=== PATIENT | female | born 1960 | race Caucasian/White ===

== ENCOUNTER 2023-07-21 05:29 | Inpatient (IN) | payer SELFPAY, OTHER ==
[2023-07-09 15:39] LABS: Magnesium 2.3 mg/dL (1.6-2.6); Thyroid Stim Hormone (TSH) 3.03 uIU/mL (0.358-3.74)
[2023-07-09 15:43] LABS: Hemoglobin A1c 5.7 % (3.8-5.6)
[2023-07-09 18:58] LABS: Albumin, Serum 3.5 g/dL (3.2-5.0); Anion Gap 5 (5-15); BUN 15 mg/dL (7-18); Calcium,Total 9.1 mg/dL (8.5-10.1); Chloride 105 mmol/L (98-107); Creatinine, Serum 0.65 mg/dL (0.55-1.02); EST Glomerular Filtration Rate 97 mL/min (>60); Est Glom Filt Rate - Afr Amer 118 mL/min (>60); Glucose 106 mg/dL (74-106); Potassium 3.7 mmol/L (3.5-5.1); Sodium Level 139 mmol/L (136-145)
[2023-07-21] VITALS (14 sets, daily range): BP systolic 98–146; BP diastolic 56–84; PULSE 72–92; RESP 15–18; TEMP 36.1–36.5; O2SAT 4–100; BMI 40.2
--- OUTSIDE RECORDS SUMMARY | 2023-07-21 05:33 | XMS RPT_ITS | CCD ---
Author Name Unknown Address [address] [place] [address] Organization [facility] Care Team Providers Care [employer] Crew Boss Name Role Phone HOMERO WOLFCHARY T Consulting Unavailable HUNTER BOSTON MD Primary Care Unavailable HUNTER BOSTON MD Admitting Unavailable HUNTER BOSTON MD Attending Unavailable PROVIDER, UNKNOWN Consulting Unavailable PROVIDER, UNKNOWN Consulting Unavailable PROVIDER, UNKNOWN Consulting Unavailable MARYANN MICHELE T Consulting Unavailable DANETTE KENDRICK DR Attending Unavailable DANETTE KENDRICK DR Admitting Unavailable DANETTE KENDRICK DR Primary Care Unavailable PROVIDER, UNKNOWN Consulting Unavailable PROVIDER, UNKNOWN Consulting Unavailable PROVIDER, UNKNOWN Consulting Unavailable MARYANN MICHELE T Consulting Unavailable DANETTE KENDRICK DR Primary Care Unavailable DANETTE KENDRICK DR Attending Unavailable DANETTE KENDRICK DR Admitting Unavailable PROVIDER, UNKNOWN Consulting Unavailable PROVIDER, UNKNOWN Consulting Unavailable PROVIDER, UNKNOWN Consulting Unavailable MARYANN MICHELE T Consulting Unavailable DANETTE KENDRICK DR Primary Care Unavailable DANETTE KENDRICK DR Attending Unavailable DANETTE KENDRICK DR Admitting Unavailable PROVIDER, UNKNOWN Consulting Unavailable PROVIDER, UNKNOWN Consulting Unavailable PROVIDER, UNKNOWN Consulting Unavailable MARYANN MICHELE T Consulting Unavailable DANETTE KENDRICK DR Primary Care Unavailable DANETTE KENDRICK DR Attending Unavailable DANETTE KENDRICK DR Admitting Unavailable PROVIDER, UNKNOWN Consulting Unavailable PROVIDER, UNKNOWN Consulting Unavailable PROVIDER, UNKNOWN Consulting Unavailable DANETTE KENDRICK DR Primary Care Unavailable DANETTE KENDRICK DR Attending Unavailable MARYANN, MICHELE T Consulting Unavailable DANETTE KENDRICK DR Admitting Unavailable PROVIDER, UNKNOWN Consulting Unavailable PROVIDER, UNKNOWN Consulting Unavailable PROVIDER, UNKNOWN Consulting Unavailable GORAN, DR SIS Bhandari Primary Care Unavaila ble GORAN, DR SIS Bhandari Attending Unavaila ble MARYANN, MICHELE T Consulting Unavailable GORAN, DR SIS Bhandari Admitting Unavaila ble PROVIDER, UNKNOWN Consulting Unavailable PROVIDER, UNKNOWN Consulting Unavailable PROVIDER, UNKNOWN Consulting Unavailable MARYANN, MICHELE T Consulting Unavailable DANETTE KENDRICK DR Primary Care Unavailable DANETTE KENDRICK DR Attending Unavailable DANETTE KENDRICK DR Admitting Unavailable PROVIDER, UNKNOWN Consulting Unavailable PROVIDER, UNKNOWN Consulting Unavailable PROVIDER, UNKNOWN Consulting Unavailable MARYANN LORD, DR CR Primary Care Physician ( [phone] MARYANN LORD, DR CR Primary Care Clint BOSTON MD, DR HUNTER Jason Attending Unavailab Kerr [employer] SPECIALIST, GENNARO Primary Care Blanka daniel SILVA MD, DR HERNADEZ Attending Unavailab Tejal LORD, DR CR Primary Care Unavailjuan carlos BOSTON MD, DR HUNTER Jason Attending Unavail elise Medications Current Medications Medication Drug Class(es) Dates Sig (Normalized) Sig (Original) calcium carbonate 1500 mg oral tablet (1 source) Start: 06-05-2021 calcium (as carbonate) 600 mg oral tablet Dose : 1,200 mg = 2 tab(s), Oral, qDay, 0 Refill(s) Start Date: 06/05/21 Status: Ordered Eye Multivitamin (1 source) Start: 06-05-2021 take 1 capsule by mouth once daily Eye Multivitamin 1 capsule, Oral, qDay, 0 Refill(s) Start Date: 06/05/21 Status: Ordered ferrous sulfate 325 mg oral tablet (1 source) Start: 05-31-2023 IRON (ferrous sulfate 325 mg) 65 mg oral tablet Dose : 325 mg = 1 tab(s), Oral, BIDM, Take with food., # 60 tab(s), 3 Refill(s) Start Date: 05/31/23 Status: Ordered herbal/nutritional product (1 source) Start: 06-05-2021 take 1 capsule by mouth once daily herbal/nutritional product 1 capsule, Oral, Daily, 0 Refill(s) Start Date: 06/05/21 Status: Ordered Magnesium and Potassium oral capsule (1 source) Start: 05-31-2023 take 1 capsule by mouth once daily Magnesium and Potassium oral capsule Dose = 1 cap(s), Oral, qDay, # 60 cap(s), 0 Refill(s) Start Date: 05/31/23 Status: Ordered Vitamin C 500 mg oral tablet (1 source) Start: 06-05-2021 Vitamin C 500 mg oral tablet Dose : 500 mg = 1 tab(s), Oral, qDay, # 30 tab(s), 0 Refill(s) Start Date: 06/05/21 Status: Ordered Vitamin D3 (1 source) Start: 06-05-2021 Vitamin D3 Dose : 1,000 unit(s) = 1 tab(s), Oral, Daily, 0 Refill(s) Start Date: 06/05/21 Status: Ordered Problems Active Problems Problem Classification Problem Date Documented Da te Episodic/Chronic Osteoarthritis (3 sources) Unilateral primary osteoarthritis, left knee; Translations: [Unilateral primary osteoarthritis, left knee] Onset: 04-16-2021 Chronic Other connective tissue disease (3 sources) Presence of left artificial knee joint; Translations: [Presence of left artificial knee joint] Onset: 07-09-2021 Chronic Unclassified (2 sources) ENCOUNTER FOR SCREENING FOR COVID-19; Translations: [ENCOUNTER FOR SCREENING FOR COVID-19] Onset: 04-07-2021 Past or Other Problems Problem Classification Problem Date Documented Da te Episodic/Chronic Unclassified (1 source) ENCOUNTER FOR SCREENING FOR COVID-19; Translations: [ENCOUNTER FOR SCREENING FOR COVID-19] Onset: 04-07-2021 Results Test Name Value Interpretation Reference Range Facil ity Vital Signs Date Time Vital Sign Value Performing Clinician [facility] 05-31-2023 13:05-[address] HUNTER BOSTON MD [facility] 05-31-2023 13:05-[address] HUNTER Lloyd [facility] 05-31-2023 13:05-0500 Body height 157.[address] HUNTER BOSTON MD [facility] 05-31-2023 13:05-0500 Body weight [address] HUNTER BOSTON MD [facility] 05-31-2023 13:05-0500 Body weight 39.91 kg/m2 DR HUNTER BOSTON MD [facility] 05-31-2023 13:05-0500 Diastolic Blood Pressure Non-Invasive [address] HUNTER BOSTON MD [facility] 05-31-2023 13:05-0500 Heart rate 88 /min DR HUNTER BOSTON MD [facility] 05-31-2023 13:05-0500 Respiratory rate 18 /min DR HUNTER BOSTON MD [facility] 05-31-2023 13:05-0500 Systolic Blood Pressure Non-Invasive [address] HUNTER BOSTON MD [facility] Encounters Encounter Date Encounter Type Care Provider Facility Start: 06-22-2023 End: 06-23-2023 ambulatory GENNARO CANCHOLA Facility:B Start: 05-31-2023 End: 06-01-[address] SHAYE WOLF MD Facility:B Start: 05-31-2023 End: 05-31-[address] HUNTER BOSTON MD [facility] Start: 04-20-[address] SHAYE WOLF MD Facility:B Start: 07-09-2021 End: 10-28-2021 ambulatory MICHELE Pabon [facility] Start: 04-16-2021 End: 07-04-2021 ambulatory MICHELE Pabon [facility] Start: 04-14-2021 End: 04-15-2021 ambulatory MICHELE Pabon WOLF [facility] Start: 04-07-2021 End: 04-07-[address] SIS ZIMMER [facility] Start: 03-27-2021 End: 03-27-2021 ambulatory MICHELE T [facility] Start: 03-27-2021 End: 03-27-2021 Encounter for other preprocedural examination DANETET KENDRICK [facility] Start: 02-24-2021 End: 02-24-2021 ambulatory MICHELEBRYAN WOLF [facility] Start: 01-28-2021 End: 01-28-2021 Encounter for preprocedural cardiovascular examination DANETTE KENDRICK [facility] Start: 01-28-2021 End: 01-28-2021 ambulatory MICHELE WOLF [facility] Procedures Date Procedure Procedure Detail Performing Clinician Start: 03-19-2021 Total replacement of left knee joint DR HUNTER BOSTON MD section DR HUNTER TUCKER MD Payers Date Payer Category Payer Unknown 1960 Unknown [id number] 2.16.84 [id number] 1960 Unknown [id number] 2.16.84 [id number] 1960 Unknown [id number] 2.16.84 [id number] 1960 Unknown [id number] 2.16.84 [id number] 1960 Unknown [id number] 2.16.84 [id number] 1960 Unknown [id number] 2.16.84 [id number] 1960 Unknown [id number] 2.16.84 [id number] 1960 Unknown [id number] 2.16.84 [id number] 1960 Unknown [id number] 2.16.8 [id number] 1960 Unknown [id number] 2.16.8 [id number] 1960 Unknown [id number] 2.16.8 [id number] Unknown 79 Unknown Social History Date Type Detail Facility Start: 06-05-2021 Tobacco smoking status Never s moked tobacco (finding) [facility] Sex Assigned At Sex [facility] Functional Status Date Assessment Result Facility 05-31-2023 Functional Status Sensory Deficits None A [facility] Discharge summary note 05-15-2021 Note Date & Type Note Facility 05-15-2021 Note [facility] DISCHARGE SUMMARY NAME ACCOUNT SEX AGE ADMIT DISCHARGE PT MED. RECORD# NUMBER DATE DATE TYPE TIMOTHY KENDRICK [id number] F 60 04/14/21 2 [id number] ROOM: [facility] DATE OF : 1960 ATTENDING PHYSICIAN: Vonnie Mayers PROGRESS NOTE/DISCHARGE SUMMARY ATTENDING ORTHOPEDIC SURGEON: Dr. Danette Kendrick. DATE OF ADMISSION: April 14, 2021 ESTIMATED DATE OF DISCHARGE: April 15, 2021 ADMITTING DIAGNOSIS: Left knee primary osteoarthritis. FINAL DIAGNOSIS: Left knee primary osteoarthritis, status post left total knee arthroplasty. HOSPITAL COURSE: The patient has an ongoing history of left knee pain. After failing conservative measures, the patient opted to proceed with a left total knee arthroplasty and underwent the above-stated procedure yesterday. She did very well. She was transferred to the third floor at [facility]. She currently denies chest pain, shortness of breath, dizziness, or calf pain. She seems to be doing well overall and would like to plan for a discharge to home later today with home health/physical therapy. PHYSICAL EXAMINATION: Vitals: Temperature is 97, pulse 58, respirations 18, blood pressure 129/67, and spO2 of 95% on room air. The patient is alert and oriented x3, in no acute distress at rest, breathing easily without respiratory distress. Inspection of the left knee is with bloody saturation on the ANUJA stocking and Dereck wrap externally. There is moderate saturation of the Mepilex dressing underneath that is covering the surgical site. It is touching 3 borders. Upon discontinuing the waterproof Mepilex dressing, there are stables intact over the surgical site. No expressible or active drainage from the left knee surgical site. A new sterile Mepilex dressing was reapplied to the surgical site with an ABD pad and an Dereck wrap for compression. We will get her a new thigh-high ANUJA stocking. Negative Homans bilaterally without signs of DVT. Pedal pulses are present and +2 bilaterally. Sensation is intact to light touch to the bilateral lower extremities. The patient is able to actively plantar and dorsiflex the bilateral feet against resistance. Neurovascularly intact. DIAGNOSTIC DATA: White blood cell count is 10.2, hemoglobin 12.9, hematocrit 38.7, and platelet count 264,000. Postoperative x-rays were discussed and reviewed with Dr. Danette Kendrick and are consistent with a cemented left total knee arthroplasty. The Page 1 of 2 TIMOTHY KENDRICK Discharge Summary TIMOTHY Juan Carlos [place] : 1960 prostheses are in good position without evidence of hardware failure or loosening. ASSESSMENT/PLAN: 1. Status post left total knee arthroplasty, postoperative day #1. 2. Continue Percocet 5/325 mg one or two p.o. every 4 hours p.r.n. pain. 3. Deep venous thrombosis prophylaxis with bilateral TEDs, SCDs and aspirin 81 mg one p.o. b.i.d. for one month postoperative. 4. Begin PT/OT and weightbearing as tolerated on the left lower extremity with a walker. 5. Encouraged incentive spirometry. 6. Continue discharge planning with case management. We will plan for discharge with home health/physical therapy. 7. The patient is orthopedically stable and okay for discharge to home today if she is having adequate pain control and doing well with physical therapy. We will plan to reassess her in the office in 2 weeks with x-rays and staple removal. If the patient bleeds through her dressing at any other point in time, she will contact our office or Dr. Danette Kendrick directly. Dictated By: Vonnie Mayers PA-C 04/15/21 07:56 JOB #: [id number] Transcribed By: berhane 04/15/21 08:58 Electronically signed by: E-sign Vonnie RAMÍREZ 05/13/21 07:42 Page 2 of 2 TIMOTHY KENDRICK Discharge Summary [facility] Evaluation + Plan note Note Date & Type Note Facility Evaluation + Plan note Future Appointments [facility] Hospital course Narrative Note Date & Type Note Facility Hospital course Narrative No data available for this section [facility] Hospital Discharge instructions Note Date & Type Note Facility Hospital Discharge instructions No data available for this section [facility] Progress note Note Date & Type Note Facility Progress note No data available for this section [facility] Summary Purpose Family History No Family History Records Found No data available for this section No Family History Records Found Advance Directives No Advanced Directives Records FoundNo Advanced Directives Records Found Additional Source Comments INFORMATION SOURCE (unrecogn ized section and content) DATE CREATED AUTHOR AUTHOR'S ORGANIZ ATION 06/24/2023 [facility] ([place]) Patient Care team informatio n (unrecognized section and content) Care Team Personnel Name: SHAYE WOLF MD Member Role: Primary Care Physician Address: Address: [address] [place] [address] [place] Care Team Related Persons Name: TONEY KENDRICK Address: Home [address] [place] [id number] FOR RECORDS PERTAINING TO PATIENTS WHO ARE OR HAVE BEEN ENROLLED IN A CHEMICAL DEPENDENCY/SUBSTANCEABUSE PROGRAM, SOME INFORMATION MAY BE OMITTED. This clinical summary was aggregated from multiple sources. Caution should be exercised in using it in the provision of clinical care. This summary normalizes information from multiple sources, and as a consequence, information in this document may materially change the coding, format and clinical context of patient data. In addition, data may be omitted in some cases. CLINICAL DECISIONS SHOULD BE BASED ON THE PRIMARY CLINICAL RECORDS. [facility]. provides no warranty or guarantee of the accuracy or completeness of information in this document.
[2023-07-21] MEDS: Acetaminophen 500 MG Tablet 1000 MG PO ×3 (06:14→20:26)
[2023-07-21] MEDS: Gabapentin 600 MG Tablet PO (06:14)
[2023-07-21] MEDS: Celecoxib 200 MG Capsule 400 MG PO (06:14)
[2023-07-21] MEDS: Lactated Ringers 1,000 ML 999 ML IV ×2 (06:26→11:56)
[2023-07-21] MEDS: Magnesium 1 GM over 15 mins IV (06:26)
[2023-07-21 06:57] LABS: Bedside Glucose 77 mg/dL (74-106)
[2023-07-21] MEDS: Cefazolin 2 GM in 0.9% Normal Saline (100mL Bag) 100 ML IV (07:35)
[2023-07-21] MEDS: TXA 1000mg in NS100 100ml (IVPB at Incision) 660 MG IV (07:45)
[2023-07-21] MEDS: dexAMETHasone 10 MG/ML Vial IV (07:54)
[2023-07-21] MEDS: JPS (Morphine 10mg/ml) OPERA.SITE (09:45)
[2023-07-21] MEDS: TXA 1000mg in NS100 100ml (IVPB at Closure) 660 MG IV (10:34)
--- NOTE | 2023-07-21 10:54 | PCM.OPRPT ---
Report of Operation Date of Procedure: 07/21/23 Pre-Operative Diagnosis: Failed left total knee replacement, insufficient medial collateral ligament Post-Operative Diagnosis: Failed left total knee replacement, insufficient medial collateral ligament Surgery/Procedure Performed:: Revision left total knee replacement, entire femoral and tibial components Intraoperative medial condyle fracture Description of Surgical Findings:: Hinge component was used in order to augment the insufficient MCL. Patellofemoral tracking improved with evangelical of alignment and lateral release. Intraoperatively patient sustained medial condyle fracture which was repaired using cerclage wire. Surgeon: Farrukh Cabrera tiltrotor crew chief: Lion Colon Type of Anesthesia: Spinal/Supplemental Anesthesiologist: Jerrell Newman Special Medications: 2 g Ancef, 1 g TXA at incision, 1 g TXA closure, 10 mg Decadron, joint cocktail (5 mg Duramorph, 30 mL of 0.5% Ropivicaine, 1000 units of epinephrine, 30 mg of Toradol) Ancef was redosed 2 hours after incision Specimen's removed: 3 separate specimens were sent to microbiology Estimated Blood Loss (mL): 150 Fluids Replaced: 2000 mL crystalloid Description of Procedure: Implants: A[employer]ail [employer] NexGen hinged total knee replacement 1. Rotating-hinge knee tibial component size 2 nonmodular 2. Rotating-hinge site C left distal femoral component with 13 x 100 mm cemented stem and 5 mm augments medially and laterally distally and medially and laterally posteriorly 3. Glen size C tibial cone 4. Abigail [employer] R HK size C 12 mm polyethylene Procedure: On the date of procedure patient's left lower extremity was marked in the preoperative area. The patient was then taken back to the operating room where the patient was placed on the table in the supine position. All bony prominences were identified a well-padded. Anesthesia assumed control of the C-spine and airway and remained controlled throughout the remainder of the procedure. A tourniquet was placed on the left upper thigh and the leg was prepped in a sterile fashion. The surgeon then scrubbed at this time. Upon reentering the room LEFt lower extremity was draped in a standard orthopedic fashion. A timeout was then called and everyone agreed upon the side, the site, the procedure to be performed, patient's identity and antibiotics given. An Esmarch bandage was used to exsanguinate the extremity and the tourniquet was placed up to 250 mmHg with the knee in flexion. A midline skin incision was made using the previous incision and extending it proximally and distally to identify normal tissue planes. Medial and lateral flaps were developed appropriate releases. The standard medial parapatellar arthrotomy was made and the patella was subluxed laterally. At this time an aggressive synovectomy was performed re-creating the medial gutter first, then the suprapatellar pouch than the lateral gutter. Once this was completed the knee was flexed up an osteotome was used to remove the tibial polyethylene. The remainder of the synovium was debrided. The due to the insufficient MCL a aggressive MCL release was done to gain exposure and the patella scar pad was resected and lateral releases were performed. Next our attention was directed to the femur. Where osteotomes and TPS saw were used to break up the implant cement interface. This was done both medially and laterally. After this is adequately lucent bone tamp was used to remove the femur component from the end of the bone. This was done with minimal bone loss. At this time attention was now directed towards the proximal tibia. Possible osteotome and TPS saw were then used to break up the proximal tibia implant interface and stacked osteotomes were used to remove the tibial implant. This was done with minimal bone loss. Our attention was then turned to the tibia where the intramedullary canal was reamed to 15 and extramedullary tibial cutting guide was used to make the appropriate tibial cut 90 degrees from the mechanical axis. A drop aida was then used to verify the cut. A size 2 tibial base plate was selected. the knee was flexed and the tibial component was pinned into place and the boss reamer was used to ream the proximal medullary canal. We then reamed for the tibial cone size C. Caney cone trial was then placed. The trial implant was impacted in its prepared position. Our attention was then turned back to the femur or the femur intramedullary canal was reamed to 16 mm and the intramedullary reamer was used as a cutting guide to make our distal femoral cut. Based on the tibial sizing we had to downsize the femur. Due to this being a hinge this was not a major issue. We had to cut the posterior condyles. And trying to get the appropriate size and placing the trials we did sustain a medial condyle fracture. With the trials in place the medial condyle was fixed using a cerclage wire. This was provisionally left in place until the final trials were completed and it was clamped while the final trials were in place. With the trial cutting guide in place and the need appropriately balance with equal leg lengths and evangelical of length with the hinged trial in place we then flexed the knee back up and cleanup cut was made we knew we would need a 5 augment medially, and 5 augment laterally. We then directed our attention to the posterior condyles we made cuts for a 5 mm augment medially, and 5 mm augment laterally. The box cutting guide was then pinned into place and the box cut was made using a reciprocating saw. The appropriate trials were then placed on the femur and tibia. A trial polyethylene was trialed to ensure proper balancing and stability of the knee. Patella tracking, was then verified and corrected appropriately as needed. At this point the tourniquet was let down to check the tracking. We performed a lateral release and obtain appropriate tracking with the trials in place. Our attention was then directed to the patella. Patella remains stably fixed. Patellar tracking was again checked and deemed appropriate. Trial implants were removed. Hemostasis was obtained using the aqua Yasmin. Final components were verified and opened, 6 liters of normal saline were irrigated throughout the joint under low-pressure lavage. Then the cement was mixed in a vacuum. Glen antibiotic Simplex cement with tobramycin was used. The wound was copiously irrigated with normal saline. When the cement was ready the components were cemented into place starting with the tibia first removing excess cement. Then a second batch of cement was mixed for the femur we did place cement restrictor's prior to cementing. Both canals were pressurized. Knee was placed in extension after cementing the femur and placing removing excess cement.. The trial poly component was placed and the knee was placed in full extension. All excess cement was removed in the process. Once the cement had cured the tracking, alignment and balance were verified and a size 12 mm polyethylene component was placed. Once the final components were placed a 3-minute dilute Betadine lavage was performed followed by a chlorhexidine lavage and finally, the wound was copiously irrigated with normal saline solution and the remainder of the periarticular injection was given. The wound was closed in a layer heredia fashion using #2 FiberWire suture for the areas around the patella for strong repair of the retinacular arthrotomy. We then ran a #1 Vicryl proximally and a #1 strata fix distally obtaining a watertight closure of the arthrotomy. Deep fatty layer was closed #1 Vicryl. 2-0 interrupted Vicryl for the subcuticular layer and 2-0 nylon for final skin closure. A sterile compressive dressing was then placed. The patient was then awakened from anesthesia, transferred to the [facility] and transferred to the PACU for recovery. Post op plan DVT ppx: ASA 81 mg BID, thigh high compression stockings Follow up: in office in 2 weeks for wound check PT: to start POD #0 at hospital, outpatient PT should be arranged. Patient will be placed on doxycycline 100 mg p.o. twice daily as we follow cultures for 2 weeks. My physician legislative assistant was a vital part of this case. He was important in appropriate retraction during the case, and protection of soft tissues during bony cuts. His intimate knowledge of the case and my steps aided in safe and expedient completion of the procedure as well as appropriate position of the leg during the case. He was also vital in assisting with closure under my direct supervision. Grafts/Implants Used: Abigail [employer]omet hinged total knee replacement Complications Medial condyle fracture Admit VTE Documentation VTE Present on Admission: No VTE Mechan Device Prophylaxis: SCD's and Thigh High ANUJA Hose VTE Pharm Prophylaxis ordered?: Yes
--- NOTE | 2023-07-21 12:15 | RAD_ITS ---
INDICATION: post op -- AP and Lateral xray of operative knee in PACU EXAMINATION/TECHNIQUE: X-RAY - LEFT XR Knee 1 or 2 Views 2 VIEWS COMPARISON: No relevant prior comparison study available FINDINGS: There is a total knee arthroplasty in place. The alignment is grossly anatomic. There are postsurgical changes within the ventral knee. RAD/Knee 1 or 2 Views IMPRESSION: Total knee arthroplasty, grossly anatomic in alignment. Electronically Signed: Sania Horn MD at 12:55 EST ,
[2023-07-21] MEDS: Cefazolin 1 GM/50 ML BAG IV ×2 (14:01→23:12)
[2023-07-21] MEDS: Morphine 4 MG/ML Syringe IV (14:25)
[2023-07-21] MEDS: 0.9% Saline Lock 10 ML Syringe IV ×4 (14:25→18:45)
[2023-07-21] MEDS: Aspirin 81 MG TAB.CHEW PO (17:08)
[2023-07-21] MEDS: Ondansetron 4 MG/2 ML Vial IV (17:08)
[2023-07-21] MEDS: Morphine 2 MG/ML Syringe IV (17:15)
[2023-07-21] MEDS: Ketorolac 15 MG/ML Vial IV (18:45)
[2023-07-21] MEDS: proMETHazine 25 MG/ML Syringe 12.5 MG IM (18:46)
--- NOTE | 2023-07-21 19:40 | PCM.PN.HOSP ---
Reason for Visit Reason for Visit: Diagnoses Encounter for other preprocedural examination (07/21/23) Subjective Subjective 62-year-old female history of elevated blood pressure and failed left total knee replacement presented to [facility] 07/21/2023 for revision of left total knee replacement and intraoperative medial condyle fracture. Hospitalist contacted for medical management. Patient evaluated bedside with family present. Reports leg is aching and some pain in her lower back which is chronic, main complaint is nausea but said it is improving since she recently got shot of Zofran, presently eating some pretzels. No other acute complaints. Objective Data Objective Data Vital Signs: Vital Signs Temp Pulse Resp BP Pulse Ox O2 Del Method O2 Flow Rate 97.6 F L 92 16 132/82 H 92 Nasal Cannula 2 07/21/23 16:51 07/21/23 16:51 07/21/23 16:51 07/21/23 16:51 07/21/23 17:22 07/21/23 16:51 07/21/23 17:22 Oxygen Flow Rate (L/min) 2 Oxygen Delivery Method Nasal Cannula Weight: 99.79 kg Body Mass Index (BMI) 40.2 Intake & Output: Intake and Output for Last 24 Hours 07/19/23 07/20/23 07/21/23 23:59 23:59 23:59 Intake Total 3482 / 3482 Balance 3482 / 3482 Lab / Micro Data 07/09/23 14:40 Labs: Laboratory Results - last 24 hr 07/21/23 06:10: POC Glucose 77 07/21/23 : Acid Fast Stain Cancelled 07/21/23 : Acid Fast Stain Cancelled 07/21/23 : Acid Fast Stain Cancelled, Miscellaneous Cytology Cancelled 07/21/23 : Miscellaneous Cytology Cancelled 07/21/23 : Miscellaneous Cytology Cancelled Micro: Microbiology 07/09/23 14:40 Nasal Secretion Nasal Screen MRSA/MSSA - Final Radiography Diagnostic Testing: Radiology Impression Knee X-Ray 07/21/23 12:15 IMPRESSION: Total knee arthroplasty, grossly anatomic in alignment. Electronically Signed: Sania Horn MD at 12:55 EST , Physical Exam Narrative General: Alert, oriented, no apparent distress HEENT: Atraumatic, normocephalic Eyes: Anicteric, normal conjunctiva, extraocular movements grossly intact Neck: Supple Respiratory: Clear to auscultation bilaterally, normal respiratory effort Cardiovascular: Regular rate and rhythm GI: Soft, nontender, nondistended Extremities: No edema Musculoskeletal: Moving all extremities Neuro: No overt focal neurological deficits Skin: No rashes appreciated Psych: Cooperative Assessment & Plan Assessment/Plan (1) S/P revision of total knee: PLAN: Plan # Revision of left total knee replacement -Management per primary -Aspirin 81 mg twice daily and thigh-high compression stockings, 2-week follow-up for wound check -PT -On Doxy 100 twice daily with cultures to be followed -Pain control # History of elevated BP -Takes 5 mg of lisinopril daily -Okay to resume this #DVT ppx: Aspirin 81 mg twice daily per primary Tania Rodriguez MD Time spent in the patient's overall evaluation,decision-making process, review of diagnostic data, adjustment of management, discussion with other providers, nursing nursing and ancillary staff involved in patient's care documentation, 26 minutes Charges/Coding Visit Charges Inpatient E&M: 71958 Subs Hosp L2
[2023-07-21] MEDS: Senna/Docusate Sodium 1 Tablet 2 TABLET PO (20:26)
[2023-07-21] MEDS: oxyCODONE 5 MG Tablet PO (20:26)
[2023-07-21] MEDS: Magnesium Chloride 64 MG Delay Rel.Tablet 128 MG PO (20:26)
[2023-07-22 03:00] VITALS: BP 123/65; PULSE 69; RESP 18; TEMP 36.6; O2SAT 95
[2023-07-22] MEDS: Acetaminophen 500 MG Tablet 1000 MG PO ×3 (04:15→20:42)
[2023-07-22 06:26] LABS: Hematocrit 34.7 % (37-47); Hemoglobin 10.8 g/dL (12.0-15.0); Mean Corp Hgb Conc 31.1 g/dL (32-36); Mean Corpuscular Hgb 28.6 pg (27.0-32.0); Mean Corpuscular Volume 91.8 fL (81-99); Mean Platelet Vol. 11.1 fl (6.2-12.0); Platelet Count 264 K/mm3 (150-450); RBC Distribution Width CV 12.9 % (11.6-14.6); RBC Distribution Width SD 43.2 fl (35.1-43.9); Red Blood Count 3.78 M/mm3 (4.2-5.4); White Blood Count 10.5 K/mm3 (4.4-11.0)
[2023-07-22 07:05] LABS: Anion Gap 5 (5-15); BUN 11 mg/dL (7-18); BUN/Creat Ratio 18.4 RATIO (10-20); Calcium,Total 8.4 mg/dL (8.5-10.1); Chloride 104 mmol/L (98-107); EST Glomerular Filtration Rate 108 mL/min (>60); Est Glom Filt Rate - Afr Amer 130 mL/min (>60); Estimated Creatinine Clearance 74.92 ml/min; Glucose 103 mg/dL (74-106); Potassium 4.3 mmol/L (3.5-5.1); Sodium Level 138 mmol/L (136-145)
[2023-07-22 07:18] VITALS: O2SAT 95
[2023-07-22] MEDS: Aspirin 81 MG TAB.CHEW PO ×2 (08:16→16:42)
[2023-07-22] MEDS: Magnesium Chloride 64 MG Delay Rel.Tablet 128 MG PO ×2 (08:16→20:43)
[2023-07-22] MEDS: Ascorbic Acid 500 MG Tablet PO (08:17)
[2023-07-22] MEDS: Senna/Docusate Sodium 1 Tablet 2 TABLET PO (08:17)
[2023-07-22] MEDS: Famotidine 20 MG Tablet PO (08:17)
[2023-07-22] MEDS: Lisinopril 5 MG Tablet PO (08:18)
[2023-07-22] MEDS: Cholecalciferol (Vit D3) 125 MCG CAPSULE (5,000 UNITS) PO (08:18)
[2023-07-22] MEDS: oxyCODONE 5 MG Tablet PO ×3 (08:24→20:42)
[2023-07-22] MEDS: Ensure Surgery 237 ML LIQUID PO ×3 (08:25→16:42)
[2023-07-22 08:54] VITALS: BP 118/66; PULSE 70; RESP 15; TEMP 36.4; O2SAT 94
--- NOTE | 2023-07-22 09:22 | PCM.PN.ORT ---
Subjective Subjective The patient was sitting in bedside chair upon examination eating breakfast. Patient denies any chest pain, shortness of breath, dizziness, lightheadedness, nausea or vomiting, or calf pain. Pain is controlled on medications. No adverse overnight events. Patient did have nausea yesterday after surgery which did affect her physical therapy. She states the nausea has resolved. Her pain has been controlled on medications. Patient's plan is to go home and would like to get home health physical therapy to begin upon discharge. She feels that her knee is much more stable than prior to surgery. Objective Data Objective Data Vital Signs: Vital Signs Temp Pulse Resp BP Pulse Ox O2 Del Method O2 Flow Rate 97.6 F L 70 15 118/66 94 Room Air 2 07/22/23 08:54 07/22/23 08:54 07/22/23 08:54 07/22/23 08:54 07/22/23 08:54 07/22/23 08:54 07/22/23 07:18 Oxygen Flow Rate (L/min) 2 Oxygen Delivery Method Room Air Weight: 99.79 kg Body Mass Index (BMI) 40.2 Intake & Output: Intake and Output for Last 24 Hours 07/20/23 07/21/23 07/22/23 23:59 23:59 23:59 Intake Total 3532 / 3532 Balance 3532 / 3532 Lab / Micro Data 07/22/23 06:10 07/22/23 06:10 Labs: Laboratory Results - last 24 hr 07/21/23 : Acid Fast Stain Cancelled 07/21/23 : Acid Fast Stain Cancelled 07/21/23 : Acid Fast Stain Cancelled, Miscellaneous Cytology Cancelled 07/21/23 : Miscellaneous Cytology Cancelled 07/21/23 : Miscellaneous Cytology Cancelled 07/22/23 06:10: WBC 10.5, RBC 3.78 L, Hgb 10.8 L, Hct 34.7 L, MCV 91.8, MCH 28.6, MCHC 31.1 L, RDW Std Deviation 43.2, RDW Coeff of Nadir 12.9, Plt Count 264, MPV 11.1, Sodium 138, Potassium 4.3, Chloride 104, Carbon Dioxide 29.0, Anion Gap 5, BUN 11, Creatinine 0.60, Estim Creat Clear Calc 74.92, Est GFR (MDRD) Af Amer 130, Est GFR (MDRD) Non-Af 108, BUN/Creatinine Ratio 18.4, Glucose 103, Calcium 8.4 L Micro: Microbiology 07/09/23 14:40 Nasal Secretion Nasal Screen MRSA/MSSA - Final Radiography Diagnostic Testing: Radiology Impression Knee X-Ray 07/21/23 12:15 IMPRESSION: Total knee arthroplasty, grossly anatomic in alignment. Electronically Signed: Sania Horn MD at 12:55 EST , Physical Exam Narrative Vital signs stable and afebrile. SCDs and ANUJA hose are in place bilaterally Patient is able to plantarflex and dorsiflex actively. Sensation is intact to light touch to saphenous, sural, superficial and deep peroneal, and tibial distribution. Prevena incisional wound VAC in place with no evidence of drainage/output in canister or tubing Negative Homans bilaterally, negative signs and symptoms of DVT. Const alert, oriented x3 and no apparent distress Assessment & Plan Assessment/Plan (1) S/P revision of total knee: PLAN: 1. S/P revision left total knee replacement entire femoral and tibial components with placement of hinged knee, intraoperative medial condyle fracture POD #1 2. Continue Pain Medications: Tylenol, meloxicam, oxycodone. Do not take any other nonsteroidal anti-inflammatories while using meloxicam/Mobic. 3. DVT Prophylaxis: Take 81 mg aspirin twice daily for 4 weeks postoperatively for DVT prophylaxis. Patient denies past history of DVT or pulmonary embolism. 4. PT/OT: Weightbearing as tolerated with walker 5. H & H: 10.8/34.7, asymptomatic. Lab work has been reviewed monitoring patient's hemoglobin and hematocrit with postoperative anemia secondary to intraoperative blood loss versus dilutional component without any intra operative complications. At this time no treatment is required. 6. Currently on doxycycline for 2 weeks postoperatively. Microbiology wound and tissue specimens were reviewed in chart and results are pending. I discussed with the patient potential side effects of doxycycline including sensitivity to the sunlight and increased risk of skin burn. Recommend patient take appropriate precautions. Also recommend patient to take probiotic while on the antibiotic. Patient voiced understanding agreement. 7. Encouraged Incentive Spirometry 8. Disposition: Plan at this time we are going to see how patient does with physical therapy today. She also did receive a block postoperatively which could still be controlling her pain. She is aware that she can see increased pain however as long as the medications are controlling her pain and she tolerates physical therapy plan will be for possible discharge home today. We are also monitoring her cultures and if the initial preliminary cultures are without growth possible discharge home today. She is currently on oral antibiotic and we discussed that antibiotic as listed above. She would like her prescriptions E scribed to [facility]. I will have case management involved with setting up home health physical therapy. I did discuss with her short-term home health and then transitioning into outpatient physical therapy. She voiced understanding and agreement. I will have her ready for possible discharge home this afternoon until we can see how she does with physical therapy, make sure her pain is adequately controlled, and make sure that cultures there is no growth. Upon discharge she will contact her office with any concerns or questions. She will follow-up per postoperative discharge instructions. I have reviewed the [place] Automated Rx Reporting System (OARRS) report for this patient for refill pattern and other prescriber involvement as part of the appropriate surveillance for the provision of acute and chronic controlled medications. The report was requested and reviewed on the date of this entry and was considered in the prescribing process. This dictation was created using voice recognition software. Phonetic and/or grammatical errors may exist.
--- NOTE | 2023-07-22 09:24 | PCM.PN.HOSP ---
Reason for Visit Reason for Visit: Left knee pain Subjective Subjective Patient is a 63-year-old female who went to the operating room yesterday with Dr. Cabrera for revision of a left total knee replacement and intraoperative medial condyle fracture. We were consulted postoperatively for medical management. Patient states she is feeling well. No complaints this morning. Nausea is resolved. She had therapy this morning and did well. Plan is for discharge home tomorrow. Objective Data Objective Data Vital Signs: Vital Signs Temp Pulse Resp BP Pulse Ox O2 Del Method O2 Flow Rate 97.6 F L 70 15 118/66 94 Room Air 2 07/22/23 08:54 07/22/23 08:54 07/22/23 08:54 07/22/23 08:54 07/22/23 08:54 07/22/23 08:54 07/22/23 07:18 Oxygen Flow Rate (L/min) 2 Oxygen Delivery Method Room Air Weight: 99.79 kg Body Mass Index (BMI) 40.2 Intake & Output: Intake and Output for Last 24 Hours 07/20/23 07/21/23 07/22/23 23:59 23:59 23:59 Intake Total 3532 / 3532 Balance 3532 / 3532 Lab / Micro Data 07/22/23 06:10 07/22/23 06:10 Labs: Laboratory Results - last 24 hr 07/21/23 : Acid Fast Stain Cancelled 07/21/23 : Acid Fast Stain Cancelled 07/21/23 : Acid Fast Stain Cancelled, Miscellaneous Cytology Cancelled 07/21/23 : Miscellaneous Cytology Cancelled 07/21/23 : Miscellaneous Cytology Cancelled 07/22/23 06:10: WBC 10.5, RBC 3.78 L, Hgb 10.8 L, Hct 34.7 L, MCV 91.8, MCH 28.6, MCHC 31.1 L, RDW Std Deviation 43.2, RDW Coeff of Nadir 12.9, Plt Count 264, MPV 11.1, Sodium 138, Potassium 4.3, Chloride 104, Carbon Dioxide 29.0, Anion Gap 5, BUN 11, Creatinine 0.60, Estim Creat Clear Calc 74.92, Est GFR (MDRD) Af Amer 130, Est GFR (MDRD) Non-Af 108, BUN/Creatinine Ratio 18.4, Glucose 103, Calcium 8.4 L Micro: Microbiology 12/22/23 14:40 Nasal Secretion Nasal Screen MRSA/MSSA - Final Radiography Diagnostic Testing: Radiology Impression Knee X-Ray 07/21/23 12:15 IMPRESSION: Total knee arthroplasty, grossly anatomic in alignment. Electronically Signed: Sania Horn MD at 12:55 EST , Physical Exam Const alert, oriented x3, no apparent distress, healthy appearing and well nourished; Negative for average body habitus Constitutional Narrative: Morbidly obese, white female, sitting up in bed, appears comfortable, at bedside, nontoxic Neuro oriented x3, moves all extremities and no focal motor deficits Psych affect normal Psych Narrative: Very pleasant, interacts appropriately Assessment & Plan Assessment/Plan (1) S/P revision of total knee: (2) Status post revision of total replacement of left knee: (3) Osteoarthritis of left knee: PLAN: Plan Left knee pain -Postop day 1 revision of left total knee arthroplasty -Management per primary -Aspirin 81 mg and thigh-high compression stockings -Outpatient follow-up in 2 weeks for wound check and postoperative x-rays Continue doxycycline 100 mg p.o. twice daily with cultures being followed by primary service -PT/OT -Pain medicine per primary service -Would recommend bowel regimen Hypertension -Continue lisinopril 5 mg daily DVT prophylaxis -per primary service Disposition: -Medically there is really nothing going on at this time and labs are stable. Vital signs are stable. -Will follow peripherally but from my standpoint medically okay for discharge Charges/Coding Visit Charges Inpatient E&M: 30256 Subs Hosp L1
--- NOTE | 2023-07-22 09:35 | PCM.DC ---
Discharge Instructions Follow Up Care Test Results: Test results from this visit will be discussed in further detail at your follow-up appointment, if applicable. Discharge Plan Admission Admit Date/Time: 07/21/23 05:29 Primary Reason for Your Visit: Revision Left Total Knee Attending Provider: Farrukh Cabrera Primary Care Provider: Amber Mcgowan NP Consulting Providers: Tania Rodriguez; Patience Phipps; Avni Aguilar Instructions Additional Instructions / Restrictions: stop doxycycline. will take the antibiotic Cipro instead and follow up with Dr. Law's office. Discharge Orders/Prescriptions Prescriptions: New acetaminophen 500 mg Tablet 1,000 mg PO Q8 14 Days Qty: 84 0RF Rx Instructions: Do not take more than 3000 mg Tylenol in a 24-hour period. aspirin 81 mg Tablet,Chewable 81 mg PO BIDCM Qty: 0 0RF Rx Instructions: Take 81 mg aspirin twice daily for 4 weeks postoperatively for DVT prophylaxis. famotidine 20 mg Tablet 20 mg PO DAILY 30 Days Qty: 30 0RF meloxicam 7.5 mg Tablet 7.5 mg PO BID 30 Days Qty: 60 0RF Rx Instructions: Do not take any other nonsteroidal anti-inflammatories while using meloxicam/Mobic. oxycodone 5 mg Tablet 5 - 10 mg PO Q4H PRN PRN (Reason: Pain Score 4-10) 7 Days Qty: 42 0RF sennosides-docusate sodium [Stool Softener-Stimulant Laxat] 8.6-50 mg Tablet 2 tab PO BID 4 Days Qty: 16 0RF Rx Instructions: Take until first bowel movement, then as needed ciprofloxacin HCl 250 mg Tablet 750 mg PO BID Qty: 0 0RF Continued lisinopril 5 mg tablet 5 mg PO DAILY ascorbic acid (vitamin C) [C Complex] 500 mg tablet extended release 500 mg PO DAILY magnesium 250 mg tablet 660 mg PO BID THYROID PRO 1 cap PO DAILY nj-Ij-ckqi-min-herbal drugs Capsule 2 cap PO DAILY ILLUMEYES 1 cap PO DAILY omega-3 fatty acids Capsule 500 mg PO DAILY cranberry extract [Cranberry Concentrate] 500 mg capsule 500 mg PO DAILY Rx Instructions: administer with a meal Carlito-Mag 200 mg calcium- 100 mg tablet,chewable 2 tab PO DAILY RELAX EASE 2 cap PO DAILY cholecalciferol (vitamin D3) [Vitamin D3] 50 mcg (2,000 unit) capsule 100 mcg PO DAILY Referrals / Follow Up: Lars Law MD [Med Staff - Active Staff] - See Referral Note (to schedule appointment by [facility] Bhargav Cheney MD [Non-Staff] - Lion Colon PA-C [Med Staff - Adv Practice Prof] - 08/05/23 3:15 pm Disposition Disposition (needs filled in before D/C Order can be placed): Home Health Service
--- NOTE | 2023-07-22 09:36 | PCM.DC ---
Documented by User: Lion RAMÍREZ PA-C 07/22/23 09:47 Discharge Instructions Diet Discharge Diet: No restrictions Activity Discharge Activity: May Not Drive (while taking narcotic pain medications.) May shower in (days): 5 (While the Prevena incisional wound VAC is in place must sponge bathe. Once wound VAC is removed on July 27, 2023 it is okay to shower and get the incision wet.) Ice area for (Minutes): 20 (Every 1-2 hours while awake[address] Please place barrier between the skin and ice pack.) Weight Bearing Status: Weight bearing as tolerated (With walker) Keep extremity elevated above heart level: Operative Extremity Dressing / Incision Call your doctor if your incision/area has: Continuous Slow Oozing, Sudden Increased Bleeding, Increased Pain/ Swelling, Increased Redness and Foul Smelling Discharge Call your doctor if you observe: Fever of 101 or Higher, Coldness, Increased Pain, Numbness or Tingling, Change in Color, Shortness of breath, Chest pain, Calf discomfort and Uncontrolled pain Remove Dressing in: 5 days (Okay to remove Prevena incisional wound VAC on July 27, 2023) Additional Dressing/Incision Instructions:: Follow [facility] Post-op Instructions. You must sponge bathe during the time the incisional wound VAC is in place. Once postoperative Prevena incisional wound VAC has been removed on July 27, 2023 only use gentle soap and water over the incision. Do not use any ointments, Neosporin, salves, alcohol pads over the incision for 6 weeks postoperatively. Do not submerge underwater for 6 weeks postoperatively. Continue with ANUJA hose/elastic stockings for 2 weeks postoperatively. May remove at nighttime but needs to be placed back on the leg during the day. Only use nonstick pads over the incision underneath the ANUJA hose. No adhesive on the skin. Do NOT use alcohol with narcotic pain medication. Do NOT make important decisions while taking narcotic medication. If you have problems with taking your medication (rash, itching, nausea, etc.) call the office at once. Follow Up Care Test Results: Test results from this visit will be discussed in further detail at your follow-up appointment, if applicable. Discharge Plan Admission Admit Date/Time: 07/21/23 05:29 Primary Reason for Your Visit: Revision Left Total Knee Attending Provider: Farrukh Cabrera Primary Care Provider: Amber Mcgowan [employer] HELPER Consulting Providers: Tania Rodriguez; Patience Phipps; Avni Aguilar Instructions Additional Instructions / Restrictions: stop doxycycline. will take the antibiotic Cipro instead and follow up with Dr. Law's office. Discharge Orders/Prescriptions Prescriptions: New acetaminophen 500 mg Tablet 1,000 mg PO Q8 14 Days Qty: 84 0RF Rx Instructions: Do not take more than 3000 mg Tylenol in a 24-hour period. aspirin 81 mg Tablet,Chewable 81 mg PO BIDCM Qty: 0 0RF Rx Instructions: Take 81 mg aspirin twice daily for 4 weeks postoperatively for DVT prophylaxis. famotidine 20 mg Tablet 20 mg PO DAILY 30 Days Qty: 30 0RF meloxicam 7.5 mg Tablet 7.5 mg PO BID 30 Days Qty: 60 0RF Rx Instructions: Do not take any other nonsteroidal anti-inflammatories while using meloxicam/Mobic. oxycodone 5 mg Tablet 5 - 10 mg PO Q4H PRN PRN (Reason: Pain Score 4-10) 7 Days Qty: 42 0RF sennosides-docusate sodium [Stool Softener-Stimulant Laxat] 8.6-50 mg Tablet 2 tab PO BID 4 Days Qty: 16 0RF Rx Instructions: Take until first bowel movement, then as needed ciprofloxacin HCl 250 mg Tablet 750 mg PO BID Qty: 0 0RF Continued lisinopril 5 mg tablet 5 mg PO DAILY ascorbic acid (vitamin C) [C Complex] 500 mg tablet extended release 500 mg PO DAILY magnesium 250 mg tablet 660 mg PO BID THYROID PRO 1 cap PO DAILY xr-Zr-uqwh-min-herbal drugs Capsule 2 cap PO DAILY ILLUMEYES 1 cap PO DAILY omega-3 fatty acids Capsule 500 mg PO DAILY cranberry extract [Cranberry Concentrate] 500 mg capsule 500 mg PO DAILY Rx Instructions: administer with a meal Carlito-Mag 200 mg calcium- 100 mg tablet,chewable 2 tab PO DAILY RELAX EASE 2 cap PO DAILY cholecalciferol (vitamin D3) [Vitamin D3] 50 mcg (2,000 unit) capsule 100 mcg PO DAILY Referrals / Follow Up: Lars Law MD [Med Staff - Active Staff] - See Referral Note (to schedule appointment by [facility].) Bhargav Cheney MD [Non-Staff] - Lion Colon PA-C [Med Staff - [facility] Prof] - 08/05/23 3:15 pm Disposition Disposition (needs filled in before D/C Order can be placed): Home Health Service Documented by User: Dr. Farrukh Cabrera MD 07/23/23 15:09 Discharge Instructions Follow Up Care Please Follow Up With: Lion Colon PA-C When: 08-05-2023 3:15 @ [facility] Call Dr Gardner's office to schedule follow up Discharge Plan Admission Admit Date/Time: 07/21/23 05:29 Primary Reason for Your Visit: Revision Left Total Knee Attending Provider: Farrukh Cabrera Primary Care Provider: Amber Mcgowan NP Consulting Providers: Tania Rodriguez; Patience Phipps; Avni Aguilar Instructions Additional Instructions / Restrictions: stop doxycycline. will take the antibiotic Cipro instead and follow up with Dr. Law's office. Discharge Orders/Prescriptions Prescriptions: New acetaminophen 500 mg Tablet 1,000 mg PO Q8 14 Days Qty: 84 0RF Rx Instructions: Do not take more than 3000 mg Tylenol in a 24-hour period. aspirin 81 mg Tablet,Chewable 81 mg PO BIDCM Qty: 0 0RF Rx Instructions: Take 81 mg aspirin twice daily for 4 weeks postoperatively for DVT prophylaxis. famotidine 20 mg Tablet 20 mg PO DAILY 30 Days Qty: 30 0RF meloxicam 7.5 mg Tablet 7.5 mg PO BID 30 Days Qty: 60 0RF Rx Instructions: Do not take any other nonsteroidal anti-inflammatories while using meloxicam/Mobic. oxycodone 5 mg Tablet 5 - 10 mg PO Q4H PRN PRN (Reason: Pain Score 4-10) 7 Days Qty: 42 0RF sennosides-docusate sodium [Stool Softener-Stimulant Laxat] 8.6-50 mg Tablet 2 tab PO BID 4 Days Qty: 16 0RF Rx Instructions: Take until first bowel movement, then as needed ciprofloxacin HCl 250 mg Tablet 750 mg PO BID Qty: 0 0RF Continued lisinopril 5 mg tablet 5 mg PO DAILY ascorbic acid (vitamin C) [C Complex] 500 mg tablet extended release 500 mg PO DAILY magnesium 250 mg tablet 660 mg PO BID THYROID PRO 1 cap PO DAILY wg-Ut-nqnl-min-herbal drugs Capsule 2 cap PO DAILY ILLUMEYES 1 cap PO DAILY omega-3 fatty acids Capsule 500 mg PO DAILY cranberry extract [Cranberry Concentrate] 500 mg capsule 500 mg PO DAILY Rx Instructions: administer with a meal Carlito-Mag 200 mg calcium- 100 mg tablet,chewable 2 tab PO DAILY RELAX EASE 2 cap PO DAILY cholecalciferol (vitamin D3) [Vitamin D3] 50 mcg (2,000 unit) capsule 100 mcg PO DAILY Referrals / Follow Up: Lars Law MD [Med Staff - Active Staff] - See Referral Note (to schedule appointment by [facility].) Bhargav Cheney MD [Non-Staff] - Lion Colon PA-C [Med Staff - Adv Practice Prof] - 08/05/23 3:15 pm Disposition Disposition (needs filled in before D/C Order can be placed): Home Health Service
--- NOTE | 2023-07-22 12:03 | CASEMGMT ---
Addendum entered by Fransisca Broderick 07/22/23 13:16: Specialist: Deborah Pt will be seen by [facility] in her home on Wednesday07/26/23. Pt is aware that this is private pay. Original Note: SALTY LAM Assessment Face to Face with patient for initial transition planning/care coordination assessment. SALTY LAM introduced self and role at [facility], pt voices understanding. Pt is A&Ox4 and is resting comfortably in bed and is calm. Pt at bedside. Care providers, pharmacy, and demographics verified. Admitting dx: Lt Total Knee LACE Strata:1 PCP: Amber Mcgowan SOCIAL SERVICE MANAGER Specialists: Arely - Cardiology - Billy Lezama Preferred Pharmacy: [facility] in [place]. Pt states she would like to use [facility] this stay. Pt educated on how to do this. Insurance:[employer] Benefit: No LNOK: - Jatin Broderick, Son - Matthieu Broderick. Living Arrangements: Pt states she lives in a two story home with a single floor setup. Pt states there are 4 steps she will need to use to get to the second floor which is where she mainly resides. Pt states there is a ramp to get into the home. Pt states she lives with her , daughter, and son. Pt states she has much support at home. ADLs/IADLs: Pt states she is normally independent with ADLs. Pt states she will need assistance with some IADLs and she has enough support for that through her ands children at home. Transportation: Pt reports they hire drivers. DME: Pt reports she has and utilizes a wheeled walker, cane, transfer bench for shower and bath, grab bars in shower, raised toilet seat with hand rails, and a commode. Denies home O2 history. HHC/SNF: Denies SNF history or needs. Pt states that she has gone through [facility] in the past. Pt states this was around 2 years ago after a procedure to her [facility]. Pt states they would like to go through [facility] again after DC. Pt states she would prefer to be seen before noon if possible. SALTY Oh CM calls [facility] and they state they can accept and see the pt starting next Wednesday07/26/23 at 1pm. The pt updated and is OK with this. Script to be signed and faxed to [phone]. LW/POA: Denies Plan: Pt plan is to DC home tomorrow with her , son, and daughter at home. Pt states they will utilize [facility] transportation van. Pt also states that she was instructed by the MD on how to remove the wound vac on Jul 27. Mattie Broderick RN CM
[2023-07-22 13:44] VITALS: BP 116/78; PULSE 83; RESP 15; TEMP 36.3; O2SAT 97
[2023-07-22 20:40] VITALS: BP 153/67; PULSE 89; RESP 18; TEMP 36.8; O2SAT 96
[2023-07-22] MEDS: Doxycycline 100 MG CAPSULE PO (20:43)
[2023-07-23 02:17] VITALS: BP 146/73; PULSE 77; RESP 18; TEMP 36.5; O2SAT 94
[2023-07-23] MEDS: oxyCODONE 5 MG Tablet PO ×3 (02:17→12:12)
[2023-07-23] MEDS: Acetaminophen 500 MG Tablet 1000 MG PO ×2 (06:50→14:19)
[2023-07-23 08:01] LABS: Hematocrit 32.8 % (37-47); Hemoglobin 10.1 g/dL (12.0-15.0); Mean Corp Hgb Conc 30.8 g/dL (32-36); Mean Corpuscular Hgb 28.5 pg (27.0-32.0); Mean Corpuscular Volume 92.4 fL (81-99); Mean Platelet Vol. 11.4 fl (6.2-12.0); Platelet Count 235 K/mm3 (150-450); RBC Distribution Width CV 13.2 % (11.6-14.6); RBC Distribution Width SD 44.7 fl (35.1-43.9); Red Blood Count 3.55 M/mm3 (4.2-5.4); White Blood Count 8.4 K/mm3 (4.4-11.0)
[2023-07-23 08:54] VITALS: BP 144/83; PULSE 84; RESP 18; TEMP 36.6; O2SAT 98
[2023-07-23] MEDS: Aspirin 81 MG TAB.CHEW PO (09:00)
[2023-07-23] MEDS: Doxycycline 100 MG CAPSULE PO (10:39)
[2023-07-23] MEDS: Magnesium Chloride 64 MG Delay Rel.Tablet 128 MG PO (10:39)
[2023-07-23] MEDS: Cholecalciferol (Vit D3) 125 MCG CAPSULE (5,000 UNITS) PO (10:40)
[2023-07-23] MEDS: Ensure Surgery 237 ML LIQUID PO ×2 (10:40→14:20)
[2023-07-23] MEDS: Senna/Docusate Sodium 1 Tablet 2 TABLET PO (10:40)
[2023-07-23] MEDS: Famotidine 20 MG Tablet PO (10:40)
[2023-07-23] MEDS: Ascorbic Acid 500 MG Tablet PO (10:40)
[2023-07-23] MEDS: Lisinopril 5 MG Tablet PO (10:40)
[2023-07-23] MEDS: Meloxicam 7.5 MG Tablet PO (10:41)
[2023-07-23 14:18] VITALS: BP 129/60; PULSE 85; RESP 18; TEMP 36.6; O2SAT 100
--- NOTE | 2023-07-23 14:29 | PCM.CONS.GEN ---
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 Will treat with ciprofloxacin 750 mg twice a day long-term at least 3 months with close follow-up in my office. I did talk to the patient's at the bedside regards to the strategy of treating this infection. HPI Consult Data Date of Consult: 07/23/23 HPI Narrative Reason for Consultation: Left periprosthetic knee infection HPI Narrative: TIMOTHY KENDRICK, is a 63 F who presents lingering/persistent pain in the left knee, patient has underlying osteoarthritis and has undergone a right total knee arthroplasty 9 years ago and did well, underwent a left total knee arthroplasty roughly 2 years ago and then had a torn cruciate ligament and had a revised arthroplasty shortly after the initial implantation. Patient was taken back to the operating room this week and underwent a further revision of the left total knee arthroplasty. Operative culture growing Pseudomonas aeruginosa with sensitivities reviewed. In talking the patient she denied any fevers or chills prior to come to the hospital no systemic complaints. Overall clinically stable. Past medical history only significant for hypertension along with the osteoarthritis [facility] Medical History (Updated 07/22/23 @ 12:[address] Patience Phipps, DO) Ambulates with cane Arthritis Back pain Bladder disease Cardiology follow-up encounter Diabetes History of pain when walking History of stress test Hypertension Leg cramps Low iron Non-smoker Post-menopausal Thyroid disease Wears glasses Home Medications ILLUMEYES 1 cap PO DAILY SUPPLEMENT 07/08/23 [History Last Taken 07/16/23] RELAX EASE 2 cap PO DAILY SUPPLEMENT 07/08/23 [History Last Taken 07/16/23] THYROID PRO 1 cap PO DAILY SUPPLEMENT 07/08/23 [History Last Taken 07/16/23] ascorbic acid (vitamin C) 500 mg tablet,extended release (C Complex) 500 mg PO DAILY SUPPLEMENT 07/08/23 [History Last Taken 07/16/23] calcium carbonate 200 mg-magnesium oxide,carbonate 100 mg chew tablet (Carlito-Mag) 2 tab PO DAILY SUPPLEMENT 07/08/23 [History Last Taken 07/16/23] cholecalciferol (vitamin D3) 50 mcg (2,000 unit) capsule (Vitamin D3) 100 mcg PO DAILY SUPPLEMENT 07/08/23 [History Last Taken 07/16/23] cranberry extract 500 mg capsule (Cranberry Concentrate) 500 mg PO DAILY SUPPLEMENT 07/08/23 [History Last Taken 07/16/23] lisinopril 5 mg tablet 5 mg PO DAILY BP 07/08/23 [History Last Taken 07/21/23 03:35] magnesium 250 mg tablet 660 mg PO BID SUPPLEMENT 07/08/23 [History Last Taken 07/16/23] ci-Ob-xjga-min-herbal drugs capsule 2 cap PO DAILY SUPPLEMENT 07/08/23 [History Last Taken 07/16/23] omega-3 fatty acids 500 mg PO DAILY SUPPLEMENT 07/08/23 [History Last Taken 07/16/23] acetaminophen 500 mg tablet 1,000 mg (2 x 500 mg) PO Q8 14 days #84 tabs 07/22/23 [Rx Last Taken Unknown] aspirin 81 mg chewable tablet 81 mg PO BIDCM #0 tabs 07/22/23 [Rx Last Taken Unknown] doxycycline monohydrate 100 mg capsule 100 mg PO BID 13 days #26 caps 07/22/23 [Rx Last Taken Unknown] famotidine 20 mg tablet 20 mg PO DAILY 30 days #30 tabs 07/22/23 [Rx Last Taken Unknown] meloxicam 7.5 mg tablet 7.5 mg PO BID 30 days #60 tabs 07/22/23 [Rx Last Taken Unknown] oxycodone 5 mg tablet 5 - 10 mg (1 - 2 x 5 mg) PO Q4H PRN PRN Pain Score 4-10 7 days #42 tabs 07/22/23 [Rx Last Taken Unknown] sennosides 8.6 mg-docusate sodium 50 mg tablet (Stool Softener-Stimulant Laxative) 2 tab PO BID 4 days #16 tabs 07/22/23 [Rx Last Taken Unknown] Allergy/AdvReac Type Severity Reaction Status Date / Time No Known Allergies Allergy Verified 07/21/23 06:03 Surgical History (Updated 07/22/23 @ 09:44 by Lion RAMÍREZ PA-C) History of History of carpal tunnel surgery of left wrist History of carpal tunnel surgery of right wrist History of laparoscopic cholecystectomy History of tonsillectomy and adenoidectomy Hx of total knee arthroplasty Hx of total knee arthroplasty Hx of tubal ligation Social History Smoking Status: Never smoker ROS ROS Narrative As stated in history of present illness others negative Physical Exam Narrative Alert responsive does not appear toxic lungs are clear heart exam S1-S2 abdomen soft nontender. Left knee postop knee. Lab / Micro Data 07/23/23 07:46 07/22/23 06:10 Labs: Laboratory Results - last 24 hr 07/23/23 07:46: WBC 8.4, RBC 3.55 L, Hgb 10.1 L, Hct 32.8 L, MCV 92.4, MCH 28.5, MCHC 30.8 L, RDW Std Deviation 44.7 H, RDW Coeff of Nadir 13.2, Plt Count 235, MPV 11.4 Micro: Microbiology 07/21/23 Unknown Tissue - Tibial Membrane Gram Stain - Final 07/21/23 Unknown Tissue - Tibial Membrane Wound Culture - Final Pseudomonas aeruginosa Pseudomonas aeruginosa#2 07/21/23 Unknown Tissue - Tibial Membrane Anaerobic Culture - Preliminary Checking for anaerobes, further studies to follow. 07/21/23 Unknown Tissue - Knee Gram Stain - Final 07/21/23 Unknown Tissue - Knee Wound Culture - Final Pseudomonas aeruginosa 07/21/23 Unknown Tissue - Knee Anaerobic Culture - Preliminary No growth in 48 hours. 07/21/23 Unknown Tissue - Suprapatellar Pouch Gram Stain - Final 07/21/23 Unknown Tissue - Suprapatellar Pouch Wound Culture - Preliminary No growth-Final to follow 07/21/23 Unknown Tissue - Suprapatellar Pouch Anaerobic Culture - Preliminary No growth in 48 hours.
--- NOTE | 2023-07-23 14:38 | NURSING ---
prescription for Cipro 750mg po BID sent to retail pharmacy. Aware pt and instructed to make follow up appointment with Dr. Law's office by [facility].
--- NOTE | 2023-07-23 14:41 | NURSING ---
talked with Lion RAMÍREZ aware Dr. Cabrera planning to see patient this afternoon. pt asking about discharge time as had scheduled hospital van for discharge at 3:30p. Dr. Cabrera paged. attempted to call Dr. Law's office to schedule f/u appointment- office closed.
[2023-07-23] MEDS: Ciprofloxacin 250 MG Tablet 750 MG PO (14:49)
--- NOTE | 2023-07-23 15:09 | PCM.DC.SUM ---
Providers Date of Admission: 07/21/23 Date of Discharge: 07/23/23 Primary Care Physician: JENA Pearson Consultations 07/21/23 12:08 Consult: Hospitalist Routine Consulting Provider: Tania Rodriguez Reason for Consult: post op med management EMERGENT Consult: No Notified: Yes Date Notified: 07/21/23 Time Notified: 13:27 Method of Notification: Text 07/22/23 16:37 Consult: Infectious Disease Routine Consulting Provider: Avni Aguilar Reason for Consult: post-op revision knee positive cultures EMERGENT Consult: No Notified: Yes Date Notified: 07/22/23 Time Notified: 16:37 Method of Notification: Verbal Reason For Visit: REVISION LEFT TOTAL KNEE ARTHROPLASTY Diagnosis Discharge Diagnosis (1) S/P revision of total knee: Status: Acute Code(s): Z96.659 - Presence of unspecified artificial knee joint Plan (1) S/P revision of total knee: PLAN: 1. S/P revision left total knee replacement entire femoral and tibial components with placement of hinged knee, intraoperative medial condyle fracture POD #2 2. Continue Pain Medications: Tylenol, meloxicam, oxycodone. Do not take any other nonsteroidal anti-inflammatories while using meloxicam/Mobic. 3. DVT Prophylaxis: Take 81 mg aspirin twice daily for 4 weeks postoperatively for DVT prophylaxis. Patient denies past history of DVT or pulmonary embolism. 4. PT/OT: Weightbearing as tolerated with walker 5. H & H: stable, asymptomatic. Lab work has been reviewed monitoring patient's hemoglobin and hematocrit with postoperative anemia secondary to intraoperative blood loss versus dilutional component without any intra operative complications. At this time no treatment is required. 6. Currently on Cipro per infectious disease in relation to Pseudomonas positive intraoperative cultures. Outpatient follow-up with infectious disease will be arranged, unable to arrange today prior to discharge. I did discuss with the patient the importance of taking a probiotic type supplement while on antibiotics. Patient demonstrates an understanding. 7. Encouraged Incentive Spirometry 8. Disposition: Patient has done well with physical therapy. Initial plan was for discharge yesterday however she developed positive cultures. Based on this we waited for infection disease. Infectious disease recommended oral antibiotics and an outpatient fashion and patient is appropriate for discharge from medical and infectious the standpoint. Orthopedically she stable. Will plan for discharge today. DVT prophylaxis was discussed the patient, pain management was discussed the patient. Physical therapy and follow-up plans were discussed with the patient. Patient demonstrates understanding of all these as well as her infectious disease follow-up expectations. Her is at bedside and also demonstrates understanding. [facility] Office: Medications at Discharge Home Medications ILLUMEYES 1 cap PO DAILY SUPPLEMENT 07/08/23 RELAX EASE 2 cap PO DAILY SUPPLEMENT 07/08/23 THYROID PRO 1 cap PO DAILY SUPPLEMENT 07/08/23 ascorbic acid (vitamin C) 500 mg tablet,extended release (C Complex) 500 mg PO DAILY SUPPLEMENT 07/08/23 calcium carbonate 200 mg-magnesium oxide,carbonate 100 mg chew tablet (Carlito-Mag) 2 tab PO DAILY SUPPLEMENT 07/08/23 cholecalciferol (vitamin D3) 50 mcg (2,000 unit) capsule (Vitamin D3) 100 mcg PO DAILY SUPPLEMENT 07/08/23 cranberry extract 500 mg capsule (Cranberry Concentrate) 500 mg PO DAILY SUPPLEMENT 07/08/23 lisinopril 5 mg tablet 5 mg PO DAILY BP 07/08/23 magnesium 250 mg tablet 660 mg PO BID SUPPLEMENT 07/08/23 in-Cq-wqxr-min-herbal drugs capsule 2 cap PO DAILY SUPPLEMENT 07/08/23 omega-3 fatty acids 500 mg PO DAILY SUPPLEMENT 07/08/23 acetaminophen 500 mg tablet 1,000 mg (2 x 500 mg) PO Q8 14 days #84 tabs 07/22/23 aspirin 81 mg chewable tablet 81 mg PO BIDCM #0 tabs 07/22/23 famotidine 20 mg tablet 20 mg PO DAILY 30 days #30 tabs 07/22/23 meloxicam 7.5 mg tablet 7.5 mg PO BID 30 days #60 tabs 07/22/23 oxycodone 5 mg tablet 5 - 10 mg (1 - 2 x 5 mg) PO Q4H PRN PRN Pain Score 4-10 7 days #42 tabs 07/22/23 sennosides 8.6 mg-docusate sodium 50 mg tablet (Stool Softener-Stimulant Laxative) 2 tab PO BID 4 days #16 tabs 07/22/23 ciprofloxacin HCl 250 mg tablet 750 mg (3 x 250 mg) PO BID #0 tabs 07/23/23 Hospital Course Operations total knee replacement (Revision left total knee replacement. Patient subsequently had positive cultures from intraoperative specimens.) Summary of Care Provided Hospital Course: On July 21, 2023 patient was brought to the hospital for revision knee replacement due to insufficient MCL. Intraoperatively patient did sustain a medial condyle fracture which was repaired. Implants bypassed the fracture elected to make the patient continue to be weightbearing as tolerated postoperatively. Intraoperative cultures were taken. 2 out of 3 showed Pseudomonas. Infectious ease was consulted. She is Bro recommended long-term oral Cipro and close infectious disease follow-up. Follow-up was arranged. Antibiotics were ordered and arranged for discharge. Patient postop course otherwise was uneventful. A mobile wound VAC device was placed patient was instructed to remove it on postop day 7. Physical Exam Const alert and oriented x3 General Appearance: cooperative and comfortable Extremity Extremity Narrative: Left lower extremity: Wound VAC dressing is clean dry and intact Sensations intact to light touch saphenous, sural, superficial peroneal, deep peroneal, and tibial distributions Motors intact EHL, DF, PF calves are soft and supple Weight / BMI Weight Weight: 220 lb Body Mass Index (BMI) 40.2 ABG / Lab / Microbiology Data 07/23/23 07:46 07/22/23 06:10 Laboratory: Laboratory Results - last 24 hr 07/23/23 07:46: WBC 8.4, RBC 3.55 L, Hgb 10.1 L, Hct 32.8 L, MCV 92.4, MCH 28.5, MCHC 30.8 L, RDW Std Deviation 44.7 H, RDW Coeff of Nadir 13.2, Plt Count 235, MPV 11.4 Microbiology: Microbiology 07/21/23 Unknown Tissue - Tibial Membrane Gram Stain - Final 07/21/23 Unknown Tissue - Tibial Membrane Wound Culture - Final Pseudomonas aeruginosa Pseudomonas aeruginosa#2 07/21/23 Unknown Tissue - Tibial Membrane Anaerobic Culture - Preliminary Checking for anaerobes, further studies to follow. 07/21/23 Unknown Tissue - Knee Gram Stain - Final 07/21/23 Unknown Tissue - Knee Wound Culture - Final Pseudomonas aeruginosa 07/21/23 Unknown Tissue - Knee Anaerobic Culture - Preliminary No growth in 48 hours. 07/21/23 Unknown Tissue - Suprapatellar Pouch Gram Stain - Final 07/21/23 Unknown Tissue - Suprapatellar Pouch Wound Culture - Preliminary No growth-Final to follow 07/21/23 Unknown Tissue - Suprapatellar Pouch Anaerobic Culture - Preliminary No growth in 48 hours. 07/09/23 14:40 Nasal Secretion Nasal Screen MRSA/MSSA - Final D/C Instructions Discharge Diet: No restrictions May shower in (days): 5 (While the Prevena incisional wound VAC is in place must sponge bathe. Once wound VAC is removed on July 27, 2023 it is okay to shower and get the incision wet.) Ice area for (Minutes): 20 (Every 1-2 hours while awake[address] Please place barrier between the skin and ice pack.) Weight Bearing Status: Weight bearing as tolerated (With walker) Keep extremity elevated above heart level: Operative Extremity Call your doctor if your incision/area has: Continuous Slow Oozing, Sudden Increased Bleeding, Increased Pain/ Swelling, Increased Redness and Foul Smelling Discharge Call your doctor if you observe: Fever of 101 or Higher, Coldness, Increased Pain, Numbness or Tingling, Change in Color, Shortness of breath, Chest pain, Calf discomfort and Uncontrolled pain Additional Dressing/Incision Instructions: Follow [facility] Post-op Instructions. You must sponge bathe during the time the incisional wound VAC is in place. Once postoperative Prevena incisional wound VAC has been removed on July 27, 2023 only use gentle soap and water over the incision. Do not use any ointments, Neosporin, salves, alcohol pads over the incision for 6 weeks postoperatively. Do not submerge underwater for 6 weeks postoperatively. Continue with ANUJA hose/elastic stockings for 2 weeks postoperatively. May remove at nighttime but needs to be placed back on the leg during the day. Only use nonstick pads over the incision underneath the ANUJA hose. No adhesive on the skin. Do NOT use alcohol with narcotic pain medication. Do NOT make important decisions while taking narcotic medication. If you have problems with taking your medication (rash, itching, nausea, etc.) call the office at once. Please Follow Up With: Lion Colon PA-C When: 08-05-2023 3:15 @ [place] Office Call Dr Gardner's office to schedule follow up Meaningful Use Info Meaningful Use Diagnoses (Choose all that apply): None applicable Discharge Plan Admission Admit Date/Time: 07/21/23 05:29 Primary Reason for Your Visit: Revision Left Total Knee Attending Provider: Farrukh Cabrera Primary Care Provider: Amber Mcgowan NP Consulting Providers: Tania Rodriguez; Patience Phipps; Avni Aguilar Instructions Additional Instructions / Restrictions: stop doxycycline. will take the antibiotic Cipro instead and follow up with Dr. Law's office. Discharge Orders/Prescriptions Prescriptions: New acetaminophen 500 mg Tablet 1,000 mg PO Q8 14 Days Qty: 84 0RF Rx Instructions: Do not take more than 3000 mg Tylenol in a 24-hour period. aspirin 81 mg Tablet,Chewable 81 mg PO BIDCM Qty: 0 0RF Rx Instructions: Take 81 mg aspirin twice daily for 4 weeks postoperatively for DVT prophylaxis. famotidine 20 mg Tablet 20 mg PO DAILY 30 Days Qty: 30 0RF meloxicam 7.5 mg Tablet 7.5 mg PO BID 30 Days Qty: 60 0RF Rx Instructions: Do not take any other nonsteroidal anti-inflammatories while using meloxicam/Mobic. oxycodone 5 mg Tablet 5 - 10 mg PO Q4H PRN PRN (Reason: Pain Score 4-10) 7 Days Qty: 42 0RF sennosides-docusate sodium [Stool Softener-Stimulant Laxat] 8.6-50 mg Tablet 2 tab PO BID 4 Days Qty: 16 0RF Rx Instructions: Take until first bowel movement, then as needed ciprofloxacin HCl 250 mg Tablet 750 mg PO BID Qty: 0 0RF Continued lisinopril 5 mg tablet 5 mg PO DAILY ascorbic acid (vitamin C) [C Complex] 500 mg tablet extended release 500 mg PO DAILY magnesium 250 mg tablet 660 mg PO BID THYROID PRO 1 cap PO DAILY hf-Cf-xvkb-min-herbal drugs Capsule 2 cap PO DAILY ILLUMEYES 1 cap PO DAILY omega-3 fatty acids Capsule 500 mg PO DAILY cranberry extract [Cranberry Concentrate] 500 mg capsule 500 mg PO DAILY Rx Instructions: administer with a meal Carlito-Mag 200 mg calcium- 100 mg tablet,chewable 2 tab PO DAILY RELAX EASE 2 cap PO DAILY cholecalciferol (vitamin D3) [Vitamin D3] 50 mcg (2,000 unit) capsule 100 mcg PO DAILY Referrals / Follow Up: Lars Law MD [Med Staff - Active Staff] - See Referral Note (to schedule appointment by [facility] Bhargav Cheney MD [Non-Staff] - Lion Colon PA-C [Med Staff - [facility]] - 08/05/23 3:15 pm Disposition Disposition (needs filled in before D/C Order can be placed): Home Health Service
--- NOTE | 2023-07-23 15:32 | PHA.DC.MR.R ---
Pharmacy MS Med Reconciliation Pharmacy Service has performed discharge medication reconciliation for this patient. The patient's discharge medication list was reviewed for discrepancies and discrepancies were resolved. Medications at Discharge Home Medications ILLUMEYES 1 cap PO DAILY SUPPLEMENT 07/08/23 RELAX EASE 2 cap PO DAILY SUPPLEMENT 07/08/23 THYROID PRO 1 cap PO DAILY SUPPLEMENT 07/08/23 ascorbic acid (vitamin C) 500 mg tablet,extended release (C Complex) 500 mg PO DAILY SUPPLEMENT 07/08/23 calcium carbonate 200 mg-magnesium oxide,carbonate 100 mg chew tablet (Carlito-Mag) 2 tab PO DAILY SUPPLEMENT 07/08/23 cholecalciferol (vitamin D3) 50 mcg (2,000 unit) capsule (Vitamin D3) 100 mcg PO DAILY SUPPLEMENT 07/08/23 cranberry extract 500 mg capsule (Cranberry Concentrate) 500 mg PO DAILY SUPPLEMENT 07/08/23 lisinopril 5 mg tablet 5 mg PO DAILY BP 07/08/23 magnesium 250 mg tablet 660 mg PO BID SUPPLEMENT 07/08/23 yg-Vk-efiz-min-herbal drugs capsule 2 cap PO DAILY SUPPLEMENT 07/08/23 omega-3 fatty acids 500 mg PO DAILY SUPPLEMENT 07/08/23 acetaminophen 500 mg tablet 1,000 mg (2 x 500 mg) PO Q8 14 days #84 tabs 07/22/23 aspirin 81 mg chewable tablet 81 mg PO BIDCM #0 tabs 07/22/23 famotidine 20 mg tablet 20 mg PO DAILY 30 days #30 tabs 07/22/23 meloxicam 7.5 mg tablet 7.5 mg PO BID 30 days #60 tabs 07/22/23 oxycodone 5 mg tablet 5 - 10 mg (1 - 2 x 5 mg) PO Q4H PRN PRN Pain Score 4-10 7 days #42 tabs 07/22/23 sennosides 8.6 mg-docusate sodium 50 mg tablet (Stool Softener-Stimulant Laxative) 2 tab PO BID 4 days #16 tabs 07/22/23 ciprofloxacin HCl 250 mg tablet 750 mg (3 x 250 mg) PO BID #0 tabs 07/23/23
== END 2023-07-23 15:29 | disposition home health service (06) | DRG 467 ==
LOC: ACINP 05:32 → MS3 12:45
PROVIDERS: Anesthesiology; Admitting Provider Specialist; PCP Nurse Practitioner Family; Referring Provider Specialist; Visit Provider Specialist
PROC: 0SRD0J9 Replacement of Left Knee Joint with Synthetic Substitute, Cemented, Open Approach (ICD-10-PCS; principal; 2023-07-21 07:05)
DX: T84.093A Other mechanical complication of internal left knee prosthesis, initial encounter (principal); Z68.41 Body mass index [BMI] 40.0-44.9, adult; T84.54XA Infection and inflammatory reaction due to internal left knee prosthesis, initial encounter; E66.01 Morbid (severe) obesity due to excess calories; M96.662 Fracture of femur following insertion of orthopedic implant, joint prosthesis, or bone plate, left leg; E03.9 Hypothyroidism, unspecified; I10 Essential (primary) hypertension; M17.12 Unilateral primary osteoarthritis, left knee; M23.632 Other spontaneous disruption of medial collateral ligament of left knee; B96.5 Pseudomonas (aeruginosa) (mallei) (pseudomallei) as the cause of diseases classified elsewhere; X58.XXXA Exposure to other specified factors, initial encounter; Z96.653 Presence of artificial knee joint, bilateral; Z79.899 Other long term (current) drug therapy
CPT/HCPCS: 36415; 73560; 80048; 82040; 82962; 83036; 83735; 84443; 85027; 87015; 87070; 87075; 87077; 87081; 87102; 87116; 87176; 87184; 87186; 87205; 87206; 93005; 94668; 97116; 97162; 97166; 97530; 97535; 99252; C1776; J7120; A4216; G0463; J2405; J3475

== ENCOUNTER → 2023-09-08 | Outpatient (CLI) | payer OTHER, SELFPAY ==
[2023-09-08 11:48] LABS: ALB/GLOB Ratio 0.9 RATIO (0.9-2.4); AST(SGOT) 14 U/L (15-37); Alanine Aminotransfer ALT/SGPT 17 U/L (13-56); Albumin, Serum 3.6 g/dL (3.2-5.0); Alkaline Phosphatase 110 U/L (45-117); Anion Gap 4 (5-15); BUN 13 mg/dL (7-18); BUN/Creat Ratio 19.4 RATIO (10-20); Calcium,Total 9.3 mg/dL (8.5-10.1); Chloride 101 mmol/L (98-107); Creatinine, Serum 0.67 mg/dL (0.55-1.02); EST Glomerular Filtration Rate 94 mL/min (>60); Est Glom Filt Rate - Afr Amer 114 mL/min (>60); Glucose 110 mg/dL (74-106); Potassium 4.2 mmol/L (3.5-5.1); Protein, Total 7.6 g/dL (6.4-8.2); Sodium Level 135 mmol/L (136-145)
[2023-09-08 11:49] LABS: Absolute Lymphocyte Count 1.96 X10^3/uL (0.83-4.51); Absolute Neutrophil Count 4.6 X10^3/uL (2.0-7.7); Basophil# 0.02 X10^3/uL; Basophil% 0.3 % (0-1); Eosinophil# 0.09 X10^3/uL; Eosinophils% 1.2 % (0-5); Hematocrit 40.2 % (37-47); Hemoglobin 12.3 g/dL (12.0-15.0); Lymphocyte # 1.96 X10^3/ul (0.83-4.51); Lymphocyte % 25.8 % (19-41); Mean Corp Hgb Conc 30.6 g/dL (32-36); Mean Corpuscular Hgb 27.4 pg (27.0-32.0); Mean Corpuscular Volume 89.5 fL (81-99); Mean Platelet Vol. 11.1 fl (6.2-12.0); Monocyte# 0.89 X10^3/uL; Monocyte% 11.7 % (0-10); NRBC Flagged by Analyzer 0 % (0-5); Neutrophil # 4.62 X10^3/uL (2.7-7.7); Neutrophil % 60.6 % (47-70); Platelet Count 494 K/mm3 (150-450); RBC Distribution Width CV 13.2 % (11.6-14.6); RBC Distribution Width SD 43.1 fl (35.1-43.9); Red Blood Count 4.49 M/mm3 (4.2-5.4); White Blood Count 7.6 K/mm3 (4.4-11.0)
[2023-09-08 11:50] LABS: Erythrocyte Sedimentation Rate 18 mm/hr (0-30)
== END | disposition home or self-care (01) ==
LOC: LAB 10:32
PROVIDERS: PCP Nurse Practitioner Family; Referring Provider Internal Medicine Infectious Disease; Visit Provider Internal Medicine Infectious Disease
DX: T84.50XA Infection and inflammatory reaction due to unspecified internal joint prosthesis, initial encounter (principal); X58.XXXA Exposure to other specified factors, initial encounter
CPT/HCPCS: 36415; 80053; 85025; 85652